=== PATIENT | male | born 1935 | race Caucasian/White ===

== ENCOUNTER 2023-11-23 16:40 | Emergency (ER) | payer OTHER, SELFPAY ==
[2023-11-23 16:50] VITALS: BP 127/70
[2023-11-23 17:29] VITALS: BMI 28.5
[2023-11-23 17:50] LABS: % Basophils 0.7 % (0-2); % Immature Granulocytes 0.3 % (0-0.5); % Lymphocytes 24.7 % (20.5-51.1); % Monocytes 12.5 % (1.7-9.3); % Neutrophils 60.8 % (42.2-75.2); Absolute Eosinophils 0.1 10^3/uL (0-0.7); Absolute Lymphocytes 1.5 10^3/uL (1.2-3.4); Absolute Monocytes 0.8 10^3/uL (0.1-0.6); Absolute Neutrophils 3.7 10^3/uL (1.4-6.5); Hematocrit 35.9 % (39.0-52.0); Hemoglobin 12.3 g/dL (13.0-18.0); Mean Corp Hgb Conc. 34.3 g/dL (33.0-37.0); Mean Corpuscular Hgb 28.9 pg (27.0-31.0); Mean Corpuscular Volume 84.3 fL (80.0-94.0); Mean Platelet Volume 10.2 fL (7.4-10.4); Nucleated Red Blood Cells % 0 % (-); Platelet Count 180 10^3/uL (130-400); Red Blood Cell Count 4.26 10^6/uL (4.70-6.10); Red Cell Dist. Width 12.6 % (11.5-14.5); White Blood Cell Count 6.2 10^3/uL (4.8-10.8)
[2023-11-23 18:06] LABS: ALT (SGPT) 12 U/L (0-50); AST (SGOT) 23 U/L (17-59); Albumin 3.7 g/dl (3.5-5.0); Alkaline Phosphatase 65 U/L (38-126); Blood Urea Nitrogen 14 mg/dl (9-20); Calcium 9.3 mg/dl (8.4-10.2); Carbon Dioxide 33 mmol/L (22-30); Chloride 98 mmol/L (98-107); Estimated Creatinine Clearance 60 ml/min; Glucose 96 mg/dl (70-99); Potassium 4.4 mmol/L (3.5-5.1); Sodium 140 mmol/L (135-145); Total Bilirubin 0.6 mg/dl (0.2-1.3); eGFR > 60.00
--- NOTE | 2023-11-23 19:14 | ED.GENMED ---
History of Present Illness
General
Chief Complaint: Skin Problem
Time Seen by Provider: 11/23/23 18:44
History of Present Illness
History of Present Illness:
88-year-old male with history of dementia presents emergency department with family for evaluation of swelling and lump to the right medial calf that has been ongoing for the past several days. Trauma is unknown. He also reports lower extremity
redness that has been ongoing for the past several weeks and gradually worsening. Patient offers no complaints
Past History
Past History
ED Past Medical History: Arrthythmia, CHF, HTN, Hypercholesterolemia and Other (Alzheimer's dementia)
ED Past Surgical History: Cardiac and Orthopedic
Social History
Tobacco: Former smoker
Alcohol: None
Drug: None
Personal:
Living: with family
Review of Systems
Review of Systems
Allergies reviewed?: Yes
All Other Systems: ROS reviewed and negative except as documented in HPI and ROS
Phy Exam
Physical Exam
Physical Exam:
GEN: Well appearing, NAD, WDWN
HEENT: Oral mucosa moist, no scleral icterus
Cardiac: Regular rate
Lung: No respiratory distress, no tachypnea
MSK: 4 cm x 2 cm fluctuant mass to the right medial calf most likely hematoma. No warmth or erythema. Bilateral venous stasis dermatitis is noted with erythema, no palpable warmth
Skin: Good color, no pallor or jaundice, no rashes
Neuro: AO x3, moves all extremities freely
Psych: Calm, cooperative
Course
Orders/Labs/Results
Orders:
Orders
11/23/23 16:53
US Legs, Right [US Periph Venous LOWER Ext RT] Urgent
Comment:
Reason For Exam: right calf swelling and redness
11/23/23 17:40
Complete Blood Count/With Diff Urgent
Comprehensive Metabolic Panel Urgent
Abnormal Lab Results
11/23/23
17:40
RBC 4.26 L 10^6/uL
(4.70-6.10)
Hgb 12.3 L g/dL
(13.0-18.0)
Hct 35.9 L %
(39.0-52.0)
Absolute Monos (auto) 0.8 H 10^3/uL
(0.1-0.6)
Monocytes % 12.5 H %
(1.7-9.3)
Carbon Dioxide 33 H mmol/L
(22-30)
Total Protein 6.0 L g/dl
(6.3-8.2)
11/23/23 17:40
11/23/23 17:40
Vital Signs
Initial and Last Documented VS:
Initial Vital Signs
Temp Pulse Resp BP Pulse Ox
98.2 F 74 20 127/70 96
11/23/23 16:50 11/23/23 16:50 11/23/23 16:50 11/23/23 16:50 11/23/23 16:50
Last Documented Vital Signs
Temp Pulse Resp BP Pulse Ox
98.2 F 80 19 127/70 99
11/23/23 16:50 11/23/23 18:45 11/23/23 18:45 11/23/23 16:50 11/23/23 18:45
MDM/Problems Addressed
MDM/Problems Addressed:
Ultrasounds no evidence of DVT. The local fluid collection is likely hematoma. After discussion with family decision was made to proceed with an aspiration for diagnostic and therapeutic purposes. Skin was prepped with chlorhexidine and an
18-gauge needle was inserted into the inferior aspect of the wound with return of approximately 8 cc of bloody fluid. No purulence was noted. The area was further massaged and expressed to exude more blood. Patient be covered with prophylactic
antibiotics due to this procedure however it is unlikely that there is any sign of infection going on with this. Regards to the leg redness this is likely venous stasis dermatitis I do not feel this represents cellulitis.
*Critical Care Note
Total Time (30-74mins, 75-104mins- exclusive of procedures): Not Applicable
ED Attending Note
-
Portions of this chart may have been created with voice recognition software.� Occasional wrong word or��sound alike� substitutions may have occurred due to the inherent limitations of voice recognition software.
Discharge Plan
Departure
Patient Disposition: Home (Routine Discharge)
Date of Disposition: 11/23/23
Time of Disposition: 19:14
Patient with high blood pressure during this ER visit?: No
Discharge Problem:
Hematoma of right lower leg, Chronic venous insufficiency
Instructions: Hematoma
Prescriptions:
New
cephalexin 500 mg capsule
500 mg PO Q8H 5 Days Qty: 15 0RF
No Action
alprazolam 0.5 MG tablet
0.5 mg PO HS
Patient Comments:
07/05/2021: last filled 06/02/21, 90 tabs for 90 days from [facility]2039
sertraline 50 MG tablet
50 mg PO HS
atorvastatin 40 MG tablet
40 mg PO QPM Qty: 30 0RF
furosemide 40 MG tablet
40 mg PO DAILY Qty: 30 0RF
potassium chloride [Klor-Con M20] 20 MEQ tablet,ER particles/crystals
20 meq PO DAILY Qty: 30 0RF
clonidine HCl 0.1 MG tablet
0.1 mg PO BID Qty: 60 0RF
amlodipine 5 MG tablet
10 mg PO DAILY Qty: 30 0RF
Rx Instructions:
NEW MED
apixaban [Eliquis] 2.5 MG tablet
2.5 mg PO BID Qty: 60 0RF
Rx Instructions:
NEW DOSE
amoxicillin-pot clavulanate 1 TABLET tablet
1 tab PO Q12 Qty: 10 0RF
Rx Instructions:
take for 5 more days
Referrals:
Erik Larson, DO [Family Provider] -
Interventions
Interventions:
*Risk Screen - Suicide Last Done: 11/23/23 16:50
*General Assessment Last Done: 11/23/23 16:50
*Neglect/Abuse Screening Last Done: 11/23/23 16:50
ED- Fall Risk Assessment Last Done: 11/23/23 19:29
*ED COVID-19 Vaccine History Last Done: 11/23/23 17:29
*Nursing Disposition Last Done: 11/23/23 19:29
ED-Skin Assessment Last Done: 11/23/23 17:46
Discharge Date and Time
Discharge Date/Time: 11/23/23 19:31
Print Language: DIVEHI
== END 2023-11-23 19:31 | disposition home or self-care (01) ==
LOC: EMR 16:40
PROVIDERS: EMERGENCY PHYSICIAN Emergency Medicine; FAMILY PHYSICIAN Family Medicine
DX: S80.11XA Contusion of right lower leg, initial encounter (principal); X58.XXXA Exposure to other specified factors, initial encounter; M79.604 Pain in right leg; R60.0 Localized edema; I87.2 Venous insufficiency (chronic) (peripheral); F02.80 Dementia in other diseases classified elsewhere, unspecified severity, without behavioral disturbance, psychotic disturbance, mood disturbance, and anxiety; G30.9 Alzheimer's disease, unspecified; I87.8 Other specified disorders of veins; E78.00 Pure hypercholesterolemia, unspecified; I11.0 Hypertensive heart disease with heart failure; I50.9 Heart failure, unspecified; Z87.891 Personal history of nicotine dependence
CPT/HCPCS: 99284; 10160; 80053; 85025; 93971